=== PATIENT | male | born 1940 | race Caucasian/White ===

== ENCOUNTER 2017-06-25 09:07 | Outpatient (CLI) | payer MEDICARE, BC | END 2017-06-25 23:59 | disposition home or self-care (01) | LOC: MRI 09:07 | DX: M19.012 Primary osteoarthritis, left shoulder (principal); S43.402A Unspecified sprain of left shoulder joint, initial encounter; M75.52 Bursitis of left shoulder; M75.82 Other shoulder lesions, left shoulder; X58.XXXA Exposure to other specified factors, initial encounter; Y93.89 Activity, other specified; Y92.89 Other specified places as the place of occurrence of the external cause; Y99.8 Other external cause status | CPT/HCPCS: 73221-TC ==

== ENCOUNTER 2017-08-16 11:12 | Outpatient (CLI) | payer MEDICARE, BC | END 2017-08-17 23:59 | disposition home or self-care (01) | LOC: MRI 11:12 | DX: M19.012 Primary osteoarthritis, left shoulder (principal); M25.412 Effusion, left shoulder | CPT/HCPCS: 73221-TC ==

== ENCOUNTER 2024-08-02 23:52 | Emergency (ER) | payer MEDICARE, BC ==
[~2024-08-02] VITALS: Ht 180.3 cm; Wt 73.5 kg
[2024-08-03] MEDS ORDERED: LACTULOSE 10 G/15 ML UDC (PYXIS) ONE (01:34)
[2024-08-03 01:49] LABS: APPEARANCE,URINE CLOUDY (CLEAR); BILIRUBIN,URINE 1+ (NEGATIVE); BLOOD, URINE 3+ Ery/uL (NEGATIVE); COLOR,URINE YELLOW (YELLOW); KETONES,URINE TRACE mg/dL (NEGATIVE); LEUKOCYTE ESTERASE ,URINE NEGATIVE (NEGATIVE); NITRITE, URINE POSITIVE (NEGATIVE); PROTEIN,URINE 1+ mg/dl (NEGATIVE); UGLUCOSE NEGATIVE (NEGATIVE); UROBILINOGEN,URINE 0.2 EU/dL (0.2)
[2024-08-03] MEDS: LACTULOSE 10 G/15 ML UDC (PYXIS) PO ONE (02:00)
[2024-08-03 02:09] LABS: ADD URINE CULTURE YES; BACTERIA,URINE Rare /HPF (None Seen); RBC,URINE 81-100 /HPF (0-2); SQUAMOUS EPITHELIAL CELL,UR 0-2 /HPF (None Seen); WBC,URINE 0-2 /HPF (0-3)
[2024-08-03] MEDS ORDERED: TAMS-12 PO (03:09)
[2024-08-03] MEDS ORDERED: LACT10SO58 PO (03:09)
[2024-08-03 03:29] VITALS: BP 136/87; TEMP 98.4; O2SAT 99
== END 2024-08-03 03:30 | disposition home or self-care (01) ==
LOC: ER 23:56
DX: R33.9 Retention of urine, unspecified (principal); K59.00 Constipation, unspecified; R31.9 Hematuria, unspecified; N40.1 Benign prostatic hyperplasia with lower urinary tract symptoms
CPT/HCPCS: 74018; 81001; 87086-TC

== ENCOUNTER 2024-08-25 23:54 | Emergency (ER) | payer MEDICARE, BC ==
[~2024-08-25] VITALS: Ht 175.3 cm; Wt 63.5 kg
[~2024-08-25 23:54] MED LIST: LACT10SO58 PO; TAMS-12 PO
[2024-08-26 01:49] VITALS: BP 164/110; TEMP 98.8; O2SAT 98
[2024-08-26 03:22] LABS: APPEARANCE,URINE SLIGHTLY CLOUDY (CLEAR); BILIRUBIN,URINE NEGATIVE (NEGATIVE); BLOOD, URINE 3+ Ery/uL (NEGATIVE); COLOR,URINE YELLOW (YELLOW); KETONES,URINE NEGATIVE (NEGATIVE); LEUKOCYTE ESTERASE ,URINE TRACE (NEGATIVE); NITRITE, URINE POSITIVE (NEGATIVE); PROTEIN,URINE TRACE mg/dl (NEGATIVE); UGLUCOSE NEGATIVE (NEGATIVE); UROBILINOGEN,URINE 0.2 EU/dL (0.2)
[2024-08-26 03:45] LABS: ADD URINE CULTURE YES; BACTERIA,URINE Few /HPF (None Seen)
[2024-08-26 04:03] LABS: SQUAMOUS EPITHELIAL CELL,UR Rare /HPF (None Seen)
[2024-08-26] MEDS ORDERED: CIPR-262 PO (04:17)
[2024-08-26] MEDS: CIPROFLOXACIN HCL 500 MG TABLET PO ONE (04:38)
[2024-08-26] MEDS ORDERED: CIPROFLOXACIN HCL 500 MG TABLET ONE (04:38)
== END 2024-08-26 04:44 | disposition home or self-care (01) ==
LOC: ER 23:57
DX: N39.0 Urinary tract infection, site not specified (principal); N40.1 Benign prostatic hyperplasia with lower urinary tract symptoms; R33.8 Other retention of urine
CPT/HCPCS: 81001

== ENCOUNTER 2024-09-02 01:05 | Emergency (ER) | payer MEDICARE, BC ==
[~2024-09-02] VITALS: Ht 175.3 cm; Wt 63.5 kg
[~2024-09-02 01:05] MED LIST changes: +CIPR-262 PO
[2024-09-02 01:21] VITALS: TEMP 98
[2024-09-02] MEDS ORDERED: LIDOCAINE 2% JEL UROJET 10 ML MM ONE (01:29)
[2024-09-02 02:06] LABS: APPEARANCE,URINE CLEAR (CLEAR); BILIRUBIN,URINE NEGATIVE (NEGATIVE); BLOOD, URINE 3+ Ery/uL (NEGATIVE); COLOR,URINE YELLOW (YELLOW); KETONES,URINE NEGATIVE (NEGATIVE); LEUKOCYTE ESTERASE ,URINE NEGATIVE (NEGATIVE); NITRITE, URINE NEGATIVE (NEGATIVE); PROTEIN,URINE TRACE mg/dl (NEGATIVE); UGLUCOSE NEGATIVE (NEGATIVE); UROBILINOGEN,URINE 0.2 EU/dL (0.2)
[2024-09-02 02:21] LABS: RBC,URINE 81-100 /HPF (0-2)
[2024-09-02 02:24] LABS: ADD URINE CULTURE YES; BACTERIA,URINE Few /HPF (None Seen)
[2024-09-02 02:25] LABS: SQUAMOUS EPITHELIAL CELL,UR Few /HPF (None Seen)
[2024-09-02 03:21] VITALS: BP 155/97; O2SAT 99
== END 2024-09-02 04:02 | disposition home or self-care (01) ==
LOC: ER 01:07
DX: N40.1 Benign prostatic hyperplasia with lower urinary tract symptoms (principal)
CPT/HCPCS: 99284; 51702; 87086; 81001; J3490